=== PATIENT | male | born 1970 | race Caucasian/White ===

== ENCOUNTER 2017-05-18 23:04 | Emergency (ER) | payer BC ==
[~2017-05-18] VITALS: Ht 170.2 cm; Wt 99.8 kg
[2017-05-18 23:41] VITALS: BP_SYST 107
[2017-05-18] MEDS ORDERED: GABA-529 PO (23:46)
[2017-05-19] MEDS ORDERED: MAG-AL HYDROX/SIMETH 30 ML UDC PO ONE
[2017-05-19] MEDS ORDERED: BELLADONNA ALKALOIDS/PHENOBARB 5 ML UDC PO ONE
[2017-05-19] MEDS ORDERED: LIDOCAINE VISCOUS 2%, 15 ML UDC MM ONE
[2017-05-19] MEDS ORDERED: ONDANSETRON HCL 4 MG/2 ML VIAL IVP ONE
[2017-05-19 00:50] VITALS: BP_SYST 113
== END 2017-05-19 00:50 | disposition home or self-care (01) ==
LOC: SED 23:04
DX: K29.70 Gastritis, unspecified, without bleeding (principal); I10 Essential (primary) hypertension; E78.00 Pure hypercholesterolemia, unspecified
CPT/HCPCS: 96374; 99284; J2001; J2405